=== PATIENT | male | born 1935 | race Caucasian/White ===

== ENCOUNTER 2019-11-12 19:54 | Emergency (ER) | payer OTHER, MEDICARE ==
[~2019-11-12] VITALS: Ht 172.7 cm; Wt 86.2 kg
[2019-11-12] MEDS ORDERED: EUTHYROX75 MC1 PO (20:38)
[2019-11-12] MEDS ORDERED: SIMV10 PO (20:38)
[2019-11-12] MEDS ORDERED: OMEP20ER PO (20:38)
== END 2019-11-12 21:07 | disposition home or self-care (01) ==
LOC: ER 19:54
DX: S51.811A Laceration without foreign body of right forearm, initial encounter (principal); I71.4 Abdominal aortic aneurysm, without rupture; Z79.899 Other long term (current) drug therapy; V69.9XXA Occupant (driver) (passenger) of heavy transport vehicle injured in unspecified traffic accident, initial encounter; Y92.411 Interstate highway as the place of occurrence of the external cause
CPT/HCPCS: 36415; 71045; 90471; 90714; 99284-25